=== PATIENT | female | born 1985 | race Hispanic/Latino ===

== ENCOUNTER 2018-10-23 17:22 | Emergency (ER) | payer BC ==
[2018-10-23 17:53] LABS: #Eosinphils 0.2 thou/uL (0.0-0.7); #Lymphocytes 2.4 thou/uL (1.20-3.40); #Monocytes 0.5 thou/uL (0.11-0.59); #Neutrophils 3.8 thou/uL (1.40-6.50); %Basophils 0.7 % (0.0-1.0); %Eosinophils 2.2 % (0.0-10.0); %Lymphocytes 35.3 % (21.0-51.0); %Neutrophils 54.8 % (42.0-75.0); Hemoglobin 14.7 g/dL (12.0-16.0); Mean Corpuscular HGB CONC 35.1 g/dL (32.0-36.0); Mean Corpuscular Hemoglobin 34.1 pg (27.0-31.0); Mean Corpuscular Volume 97.1 fL (78.0-98.0); Mean Platelet Volume 8.6 fL (7.4-10.4); Platelet Count 209 thou/uL (130-400); RBC Distribution Width 10.8 % (11.5-14.5); Red Blood Cell (RBC) Count 4.31 mill/uL (4.20-5.40); White Blood Cell (WBC) Count 6.9 thou/uL (4.8-10.8)
[2018-10-23 18:02] LABS: Bilirubin Negative (Negative); Blood, Urine Negative (Negative); Clarity TURBID (Clear); Glucose, Urine (Dipstick) Negative (Negative); Leukocyte Negative (Negative); Nitrite Negative (Negative); Protein, Urine (Dipstick) Negative (Neg-Trace); Specific Gravity, Urine 1.017 (1.002-1.036); Urobilinogen 0.2 mg/dL (0.2-1.0); pH, Urine 7.5 (5.0-9.0)
--- NOTE | 2018-10-23 18:44 | ULT ---
PELVIC ULTRASOUND: 10/23/18 HISTORY: Pelvic pain. Real time imaging of the pelvis was obtained transabdominally. The patient refused and endovaginal ex am. An intrauterine gestational sac is identified but pole or yolk sac are not definitely seen. The sac appears somewhat elongated in appearance. Sac measurements of 2.7 cm were obtained. This was the longest measurement of the sac which would correspond to 7 weeks, 5 days. The right ovary shows a 2.6 x 3.2 cm cyst. The left adnexa is normal in appearance. Doppler EVALUATION WITH SPECTRAL ANALYSIS: Normal flow is shown to both adnexa. IMPRESSION: Intrauterine gestational sac without definite pole or yolk sac. Gestational sac appears slightl y deformed. The patient refuses endovaginal exam. Follow-up ultrasound would be recommended. POS: [facility]
--- NOTE | 2018-10-23 21:03 | ULT ---
TRANSVAGINAL PELVIC ULTRASOUND: 10/23/18 HISTORY: Vaginal bleeding. COMPARISON: Transabdominal exam done earlier. Real time imaging of the pelvis was obtained transvaginally. This shows an intrauterine gestational s ac and yolk sac as well as a pole. The pole is difficult to visualize due to its small si ze. The gestational sac measurements are 1.8 cm corresponding to 6 weeks, 6 days. [facility] [place] to rump lengt h measurements are 2.6 mm corresponding to 5 weeks, 6 days. heart rate is measured at 109 beats per minute. The left ovary is normal in appearance. The right ovarian cyst and some trace free fluid are again de monstrated. IMPRESSION: Intrauterine gestational sac in the fundus region of the uterus with difficult to visualize but viabl e appearing intrauterine with overall measurements corresponding to 6 weeks, 3 days. Estima hari date of delivery 06/15/19. A tiny subchorionic bleed is identified. POS: [facility]
--- NOTE | 2018-10-24 03:10 | CON ---
DATE OF CONSULTATION: 10/23/2018 CONSULTING PHYSICIAN: Negar Paez MD CHIEF COMPLAINT: Low back pain and spotting. HISTORY OF PRESENT ILLNESS: This is a 33-year-old G3, P0-0-2-0 at approximately 6 weeks and 1 day by last menstrual period, who presented to the emergency department for low back pain and an episode of spotting. She reports this has been going on all day and is constant in nature. She denies any abdominal pain or other concerns. She had 1 episode of vaginal spotting, which she described as "pretty much nothing." She denies any other complaints today. REVIEW OF SYSTEMS: Negative for head, eyes, ears, nose, throat, cardiovascular, respiratory, GI, , neuro, psych, musculoskeletal, skin, or constitutional symptoms other than mentioned above. PAST MEDICAL HISTORY: None. PAST SURGICAL HISTORY: None. OB HISTORY: Two prior elective terminations in the 1st trimester. MEDICATIONS: None. ALLERGIES: NO KNOWN DRUG ALLERGIES. SOCIAL HISTORY: Positive for tobacco use, approximately 3 cigarettes per day. Denies any alcohol or drug abuse. PHYSICAL EXAMINATION: VITAL SIGNS: Afebrile with normal vital signs. GENERAL: Awake, alert, no acute distress. CHEST: Nonlabored breathing. ABDOMEN: Soft, nontender to palpation. PELVIC: Deferred. LABORATORY DATA: HCG 29,750, otherwise unremarkable. IMAGING: Pelvic ultrasound was performed transabdominally which showed a gestational sac, but no visible yolk sac. ASSESSMENT AND PLAN: A 33-year-old, G3, P0-0-2-0 at 6 weeks and 1 day by last menstrual period with a pelvic ultrasound showing no yolk sac or pole. I discussed with the patient that performing this ultrasound abdominally at this gestational age is not reliable and recommended repeating transvaginally. The patient refused transvaginal ultrasound with her initial exam, but is now agreeable to that. She is very tearful as this is a desired . I reviewed the images myself abdominally and felt that I could see a small yolk sac present, so hopefully this is a viable . If there is a yolk sac and/or pole present, she can follow up with Dr. Haq next week for repeat ultrasound. If not, please notify me and I will come down and discuss further options with the patient. Thank you very much for this consultation. Please let me know if I can be of any further assistance. Job ID: [id number]
== END 2018-10-23 21:17 | disposition home or self-care (01) ==
LOC: ERS 17:22
DX: O20.9 Hemorrhage in early pregnancy, unspecified (principal); O34.81 Maternal care for other abnormalities of pelvic organs, first trimester; N83.201 Unspecified ovarian cyst, right side; O99.331 Smoking (tobacco) complicating pregnancy, first trimester; Z3A.01 Less than 8 weeks gestation of pregnancy
CPT/HCPCS: 36415; 76856; 81003; 84144; 84702; 85025; 86900; 86901; 93976

== ENCOUNTER 2018-11-08 14:38 | Outpatient (CLI) | payer BC ==
--- NOTE | 2018-11-08 15:54 | ULT ---
PELVIC ULTRASOUND: Transabdominal and endovaginal ultrasound of pelvis performed. 11/08/18 INDICATIONS: No heart tones. COMPARISON: Comparison made to pelvic ultrasound of 10/23/18. That exam revealed a gestational sac measurements in dicated 6 weeks, 6 day gestation. A tiny pole was described. On today's exam, there is a large irregular shaped gestational sac. No pole. No yolk sac identi fied. Hypoechoic focus in the uterine fundus to the right consistent with a small fibroid measuring approxi mately 2 cm. Right ovarian cyst measuring up to 3 cm. Ovaries otherwise unremarkable. Color Doppler and spectral a nalysis demonstrates blood flow to both ovaries. IMPRESSION: 1. Irregularly shaped large gestational sac. No evidence of pole and no evidence of yolk s ac. Viability is not confirmed. Findings suggest missed AB. 2. Right ovarian cyst. POS: [facility]
== END 2018-11-08 14:39 | disposition home or self-care (01) ==
LOC: BICULT 14:38
PROVIDERS: ATTEND Family Medicine
DX: Z34.01 Encounter for supervision of normal first pregnancy, first trimester (principal); N83.201 Unspecified ovarian cyst, right side; Z3A.01 Less than 8 weeks gestation of pregnancy
CPT/HCPCS: 76856; 87480; 87491; 87510; 87591; 87624; 87660; 88142; G0123

== ENCOUNTER 2018-11-10 10:35 | Emergency (ER) | payer BC ==
--- NOTE | 2018-11-10 13:02 | ULT ---
Exam: Pelvic ultrasound including Transabdominal, Transvaginal, And Vascular Duplex with color and spectral Doppler imaging: HISTORY: Rule out ectopic, follow-up early intrauterine , follow-up nonviable COMPARISON: 11/08/2018, 10/23/2018 FINDINGS: The uterus is 10.1 x 6.6 x 4.2 cm There is a large intrauterine gestational sac which is empty. No evidence for a pole or v iability. Gestational age by sac size equals 12 weeks 0 days. Right ovary:4.9 x 2.5 x 3.3 cm Left ovary:1.7 x 4.5 x 2.8 cm. 2.8 x 3.1 cm right ovarian cyst. No abscess or significant abnormal fluid collection. No evidence for ectopic . Vascular duplex examination demonstrates no evidence for ovarian torsion IMPRESSION: Large empty gestational sac. No evidence for pole or viability. Evidence for missed AB.
== END 2018-11-10 13:30 | disposition home or self-care (01) ==
LOC: ERS 10:35
DX: O02.1 Missed abortion (principal); Q51.3 Bicornate uterus; F17.210 Nicotine dependence, cigarettes, uncomplicated
CPT/HCPCS: 76856; 84702